=== PATIENT | female | born 1950 | race Caucasian/White ===

== ENCOUNTER → 2023-07-28 09:11 | Outpatient (REF) | payer MEDICARE, SELFPAY ==
[2023-07-28 10:42] LABS: % Basophils 0.4 % (0-2); % Eosinophils 6.7 % (0-6); % Immature Granulocytes 0.2 % (0-0.5); % Lymphocytes 42.6 % (20.5-51.1); % Monocytes 7.6 % (1.7-9.3); % Neutrophils 42.5 % (42.2-75.2); Absolute Eosinophils 0.4 10^3/uL (0-0.7); Absolute Lymphocytes 2.2 10^3/uL (1.2-3.4); Absolute Monocytes 0.4 10^3/uL (0.1-0.6); Absolute Neutrophils 2.2 10^3/uL (1.4-6.5); Hematocrit 42.3 % (37.0-47.0); Hemoglobin 13.2 g/dL (12.0-16.0); Mean Corp Hgb Conc. 31.2 g/dL (33.0-37.0); Mean Corpuscular Hgb 31.4 pg (27.0-31.0); Mean Corpuscular Volume 100.7 fL (81.0-99.0); Mean Platelet Volume 9.9 fL (7.4-10.4); Nucleated Red Blood Cells % 0 %; Platelet Count 130 10^3/uL (130-400); Red Cell Dist. Width 12.9 % (11.5-14.5); White Blood Cell Count 5.2 10^3/uL (4.8-10.8)
[2023-07-28 10:55] LABS: Urine Albumin Negative (Neg - Trace); Urine Bilirubin Negative (Negative); Urine Character Clear (Clear); Urine Color Yellow; Urine Glucose Negative (Negative); Urine Ketone Trace (Negative); Urine Leukocyte Negative (Negative); Urine Nitrite Negative (Negative); Urine Occult Blood Negative (Negative); Urine Urobilinogen Negative (Neg - 1+)
[2023-07-28 14:29] LABS: ALT (SGPT) 15 U/L (0-35); AST (SGOT) 17 U/L (14-36); Alkaline Phosphatase 63 U/L (38-126); Blood Urea Nitrogen 27 mg/dl (7-17); Calcium 10.3 mg/dl (8.4-10.2); Carbon Dioxide 26 mmol/L (22-30); Chloride 109 mmol/L (98-107); Glucose 95 mg/dl (70-99); HDL Cholesterol 77 mg/dl; LDL Cholesterol, Calculated 110 mg/dl; Phosphorus 3.4 mg/dl (2.5-4.5); Potassium 4.4 mmol/L (3.5-5.1); Sodium 139 mmol/L (135-145); Total Bilirubin 0.6 mg/dl (0.2-1.3); Total Cholesterol 218 mg/dl (50-199); Total Protein 6.6 g/dl (6.3-8.2); Triglyceride 155 mg/dl (10-149); Uric Acid 7.5 mg/dl (2.5-6.2); Very Low Density Lipoprotein 31 mg/dl (0-30); eGFR 59.12
[2023-07-28 14:41] LABS: Free T4 1.02 ng/dl (0.78-2.19)
[2023-07-28 14:55] LABS: TSH 3.05 uIU/ml (0.47-4.68)
[2023-07-28 15:23] LABS: Creatine Phosphokinase 68 U/L (30-135)
[2023-07-28 16:03] LABS: Vitamin D, 25-OH*** 36.2 ng/mL (30-80)
== END ==
LOC: REG 09:11
PROVIDERS: ATTENDING PHYSICIAN Family Medicine; OTHER PHYSICIAN Internal Medicine Cardiovascular Disease; OTHER PHYSICIAN Psychiatry & Neurology Psychiatry; REFERRING PHYSICIAN Internal Medicine Endocrinology, Diabetes & Metabolism
DX: Z00.00 Encounter for general adult medical examination without abnormal findings (principal); I10 Essential (primary) hypertension; E03.9 Hypothyroidism, unspecified; R73.03 Prediabetes; E55.9 Vitamin D deficiency, unspecified
CPT/HCPCS: 36415; 80053; 80061; 81003; 82306; 82550; 83036; 83735; 84100; 84439; 84443; 84550; 85025

== ENCOUNTER → 2024-01-19 11:31 | Outpatient (REF) | payer MEDICARE, SELFPAY ==
[2024-01-19 12:43] LABS: % Basophils 0.4 % (0-2); % Eosinophils 2.7 % (0-6); % Immature Granulocytes 0.4 % (0-0.5); % Lymphocytes 34.3 % (20.5-51.1); % Monocytes 9.6 % (1.7-9.3); % Neutrophils 52.6 % (42.2-75.2); Absolute Eosinophils 0.1 10^3/uL (0-0.7); Absolute Lymphocytes 1.6 10^3/uL (1.2-3.4); Absolute Monocytes 0.5 10^3/uL (0.1-0.6); Absolute Neutrophils 2.5 10^3/uL (1.4-6.5); Hematocrit 42.1 % (37.0-47.0); Hemoglobin 13.4 g/dL (12.0-16.0); Mean Corp Hgb Conc. 31.8 g/dL (33.0-37.0); Mean Corpuscular Hgb 32.1 pg (27.0-31.0); Mean Corpuscular Volume 100.7 fL (81.0-99.0); Mean Platelet Volume 9.7 fL (7.4-10.4); Nucleated Red Blood Cells % 0 %; Platelet Count 117 10^3/uL (130-400); Red Blood Cell Count 4.18 10^6/uL (4.20-5.40); Red Cell Dist. Width 13.1 % (11.5-14.5); White Blood Cell Count 4.8 10^3/uL (4.8-10.8)
[2024-01-19 13:56] LABS: Iron 90 ug/dl (37-170)
[2024-01-19 14:37] LABS: Ferritin 39.9 ng/ml (11.1-264.0)
[2024-01-21 12:07] LABS: Albumin 3.85 g/dL (3.75-5.01); Alpha 1 Globulin 0.25 g/dL (0.19-0.46); Alpha 2 Globulin 0.64 g/dL (0.48-1.05); SPEP IFE Reflex Not Done; Total Protein-Electrophoresis 6.2 g/dL (6.3-8.2)
== END ==
LOC: REG 11:31
PROVIDERS: ATTENDING PHYSICIAN Family Medicine
DX: I10 Essential (primary) hypertension (principal)
CPT/HCPCS: 82728; 83540; 84155; 84165; 85025

== ENCOUNTER → 2024-05-12 12:04 | Outpatient (REF) | payer MEDICARE, SELFPAY ==
[2024-05-12 13:34] LABS: ALT (SGPT) 22 U/L (0-35); AST (SGOT) 21 U/L (14-36); Albumin 3.9 g/dl (3.5-5.0); Alkaline Phosphatase 60 U/L (38-126); Blood Urea Nitrogen 36 mg/dl (7-17); Calcium 10.2 mg/dl (8.4-10.2); Carbon Dioxide 28 mmol/L (22-30); Chloride 106 mmol/L (98-107); Glucose 88 mg/dl (70-99); Potassium 5.2 mmol/L (3.5-5.1); Sodium 139 mmol/L (135-145); Total Bilirubin 0.5 mg/dl (0.2-1.3); Total Protein 6.4 g/dl (6.3-8.2); eGFR 42.88
[2024-05-12 13:51] LABS: Vitamin D, 25-OH*** 33.9 ng/mL (30-80)
== END ==
LOC: REG 12:04
PROVIDERS: ATTENDING PHYSICIAN Internal Medicine Endocrinology, Diabetes & Metabolism; FAMILY PHYSICIAN Family Medicine; REFERRING PHYSICIAN Internal Medicine Cardiovascular Disease
DX: E03.9 Hypothyroidism, unspecified (principal); E21.0 Primary hyperparathyroidism; E55.9 Vitamin D deficiency, unspecified
CPT/HCPCS: 36415; 80053; 82306; 83970; 84443

== ENCOUNTER → 2024-07-12 11:21 | Outpatient (REF) | payer MEDICARE, SELFPAY ==
[2024-07-12 12:10] LABS: % Basophils 0.3 % (0-2); % Eosinophils 4.2 % (0-6); % Immature Granulocytes 0.3 % (0-0.5); % Lymphocytes 32.8 % (20.5-51.1); % Monocytes 7.5 % (1.7-9.3); % Neutrophils 54.9 % (42.2-75.2); Absolute Eosinophils 0.3 10^3/uL (0-0.7); Absolute Monocytes 0.5 10^3/uL (0.1-0.6); Absolute Neutrophils 3.3 10^3/uL (1.4-6.5); Hematocrit 40.1 % (37.0-47.0); Hemoglobin 12.7 g/dL (12.0-16.0); Mean Corp Hgb Conc. 31.7 g/dL (33.0-37.0); Mean Corpuscular Hgb 31.3 pg (27.0-31.0); Mean Corpuscular Volume 98.8 fL (81.0-99.0); Mean Platelet Volume 9.7 fL (7.4-10.4); Nucleated Red Blood Cells % 0 %; Platelet Count 150 10^3/uL (130-400); Red Blood Cell Count 4.06 10^6/uL (4.20-5.40); Red Cell Dist. Width 12.9 % (11.5-14.5); Urine Albumin Negative (Neg - Trace); Urine Bilirubin Negative (Negative); Urine Character Clear (Clear); Urine Color Yellow; Urine Glucose Negative (Negative); Urine Ketone Negative (Negative); Urine Leukocyte 2+ (Negative); Urine Nitrite Negative (Negative); Urine Occult Blood Negative (Negative); Urine Specific Gravity 1.015 (<1.030); Urine Urobilinogen Negative (Neg - 1+)
[2024-07-12 12:18] LABS: Urine Squamous Cell >30 /LPF (Few)
[2024-07-12 12:21] LABS: Urine Bacteria Moderate (Negative); Urine White Cell 21-25 /HPF (0-5)
[2024-07-12 12:23] LABS: Urine Red Blood Cell 0-2 /HPF (0-2)
[2024-07-12 13:26] LABS: Depakane 48.7 ug/ml (50.0-120.0)
[2024-07-12 14:05] LABS: Free T4 1.05 ng/dl (0.78-2.19)
[2024-07-12 14:19] LABS: ALT (SGPT) 16 U/L (0-35); AST (SGOT) 15 U/L (14-36); Alkaline Phosphatase 70 U/L (38-126); Blood Urea Nitrogen 28 mg/dl (7-17); Calcium 10.2 mg/dl (8.4-10.2); Carbon Dioxide 25 mmol/L (22-30); Chloride 109 mmol/L (98-107); Glucose 84 mg/dl (70-99); HDL Cholesterol 72 mg/dl; LDL Cholesterol, Calculated 103 mg/dl; Lithium 1.2 mmol/L (0.6-1.2); Phosphorus 3.3 mg/dl (2.5-4.5); Potassium 4.4 mmol/L (3.5-5.1); Sodium 143 mmol/L (135-145); TSH 0.08 uIU/ml (0.47-4.68); Total Bilirubin 0.6 mg/dl (0.2-1.3); Total Cholesterol 200 mg/dl (50-199); Total Protein 6.3 g/dl (6.3-8.2); Triglyceride 127 mg/dl (10-149); Uric Acid 7.3 mg/dl (2.5-6.2); Very Low Density Lipoprotein 25 mg/dl (0-30); eGFR 58.75
== END ==
LOC: REG 11:21
PROVIDERS: ATTENDING PHYSICIAN Family Medicine; OTHER PHYSICIAN Internal Medicine Cardiovascular Disease; OTHER PHYSICIAN Internal Medicine Endocrinology, Diabetes & Metabolism
DX: E03.9 Hypothyroidism, unspecified (principal); I10 Essential (primary) hypertension; E78.9 Disorder of lipoprotein metabolism, unspecified; Z00.00 Encounter for general adult medical examination without abnormal findings
CPT/HCPCS: 36415; 80053; 80061; 80164; 80178; 81003; 81015; 83735; 84100; 84439; 84443; 84550; 85025

== ENCOUNTER → 2024-11-09 11:20 | Outpatient (REF) | payer MEDICARE, SELFPAY ==
[2024-11-09 14:44] LABS: Iron 108 ug/dl (37-170)
[2024-11-09 14:53] LABS: Total Iron Binding Capacity 310 ug/dl (265-497)
[2024-11-09 15:28] LABS: Ferritin 46.2 ng/ml (11.1-264.0)
[2024-11-09 15:59] LABS: Folate 10.1 ng/ml (2.76-20); Vitamin B12 228 pg/ml (239-931)
[2024-11-09 16:21] LABS: CRP, Ultra Sensitive 1.02 mg/L (0.30-5.00)
[2024-11-10 11:13] LABS: tTG IgA Antibody 5.5 EU/ml (0-19)
[2024-11-11 14:16] LABS: Lyme Antibody Screen, EIA Negative (Negative)
[2024-11-12 06:52] LABS: Copper, Serum 92.6 ug/dL (80.0-155.0)
[2024-11-12 09:03] LABS: Gliadin Peptide (DGP) Ab, IgA <0.72 FLU (0.00-4.99); Gliadin Peptide (DGP) Ab, IgG 2.09 FLU (0.00-4.99)
== END ==
LOC: REG 11:20
PROVIDERS: ATTENDING PHYSICIAN Psychiatry & Neurology Neurology; FAMILY PHYSICIAN Family Medicine; OTHER PHYSICIAN Internal Medicine Cardiovascular Disease; OTHER PHYSICIAN Internal Medicine Endocrinology, Diabetes & Metabolism; OTHER PHYSICIAN Psychiatry & Neurology Psychiatry
DX: R26.9 Unspecified abnormalities of gait and mobility (principal); G25.9 Extrapyramidal and movement disorder, unspecified; F31.9 Bipolar disorder, unspecified; E79.0 Hyperuricemia without signs of inflammatory arthritis and tophaceous disease; E53.8 Deficiency of other specified B group vitamins; R71.8 Other abnormality of red blood cells; E03.8 Other specified hypothyroidism; Z79.899 Other long term (current) drug therapy; D51.9 Vitamin B12 deficiency anemia, unspecified
CPT/HCPCS: 36415; 82085; 82164; 82525; 82550; 82607; 82728; 82746; 82784; 83516; 83540; 83550; 84207; 84425; 84439; 84443; 84446; 85652; 86141; 86235; 86258; 86618; 86780

== ENCOUNTER → 2025-01-18 12:34 | Outpatient (REF) | payer MEDICARE, SELFPAY | LOC: MRI 3T 12:34 | PROVIDERS: ATTENDING PHYSICIAN Psychiatry & Neurology Neurology; FAMILY PHYSICIAN Family Medicine | DX: R27.0 Ataxia, unspecified (principal); G25.9 Extrapyramidal and movement disorder, unspecified; F31.9 Bipolar disorder, unspecified; R26.9 Unspecified abnormalities of gait and mobility | CPT/HCPCS: 70551; 72141 ==

== ENCOUNTER 2025-03-27 18:21 | Inpatient (IN) | payer MEDICARE, SELFPAY ==
[2025-03-27] VITALS (9 sets, daily range): BP systolic 113–158; BP diastolic 70–98; BMI 31.2
[2025-03-27 12:06] LABS: Hematocrit 36.1 % (37.0-47.0); Hemoglobin 11.8 g/dL (12.0-16.0); Mean Corp Hgb Conc. 32.7 g/dL (33.0-37.0); Mean Corpuscular Volume 96.8 fL (81.0-99.0); Platelet Count 119 10^3/uL (130-400); Red Cell Dist. Width 12.8 % (11.5-14.5)
[2025-03-27 12:19] LABS: COVID-19 Antigen Negative (Negative)
[2025-03-27 12:20] LABS: ALT (SGPT) 56 U/L (0-35); AST (SGOT) 54 U/L (14-36); Albumin 3.7 g/dl (3.5-5.0); Alkaline Phosphatase 115 U/L (38-126); Blood Urea Nitrogen 30 mg/dl (7-17); Calcium 10.2 mg/dl (8.4-10.2); Carbon Dioxide 19 mmol/L (22-30); Chloride 105 mmol/L (98-107); Glucose 112 mg/dl (70-99); Potassium 4.1 mmol/L (3.5-5.1); Sodium 135 mmol/L (135-145); Total Protein 6.4 g/dl (6.3-8.2); eGFR 30.89
--- NOTE | 2025-03-27 15:09 | ED.GENMED ---
History of Present Illness
General
Chief Complaint: Weakness
Time Seen by Provider: 03/27/25 15:08
History of Present Illness
History of Present Illness:
FOCUSED PAST MEDICAL HISTORY
- High blood pressure, hypothyroidism, history of bipolar disorder
REVIEW OF OLD RECORDS
- Creatinine 07/12/2024 was 1.0
Note:
CHIEF COMPLAINT(S)
Decreased mobility, speech, and appetite.
HISTORY OF PRESENT ILLNESS
The patient is a 75-year-old female with a past psychiatric history of bipolar disorder for the past 35 years and hypothyroidism. She presented with a progressive decline starting yesterday, including decreased mobility, speech, and appetite. She
has been craving soda and not hydrating well otherwise. The family suspects catatonia, as she has had similar episodes in the past.
PAST MEDICAL AND SURGICAL HISTORY
- Bipolar disorder for over 35 years.
- Hypothyroidism.
CHRONIC MEDICAL CONDITIONS SIGNIFICANTLY AFFECTING CARE
- Bipolar disorder.
- Hypothyroidism.
SOCIAL DETERMINANTS AFFECTING HEALTH
The patients craving for soda and inadequate hydration are of medical concern, contributing to poor kidney function.
MEDICATIONS
- Depakote
- Savannah
- Clonazepam (used as needed for manic episodes; last dose taken was 0.5 mg at 10:00 AM today).
REVIEW OF SYSTEMS
- General: Decreased appetite and mobility.
- Neurological: Impaired speech and weakness in extremities.
- Psychiatric: Depression with flat affect, suspected catatonia.
PHYSICAL EXAM
General: Alert, appears weak and debilitated.
Skin: Warm, dry.
Head: Normocephalic, atraumatic.
Neck: Supple, trachea midline.
Eye, Ears, Nose, Mouth, and Throat: Oral mucosa moist.
Cardiovascular: Normal peripheral perfusion, no edema.
Respiratory: Respirations are non-labored.
Gastrointestinal: Abdomen nondistended.
Back: Normal range of motion, Normal alignment.
Musculoskeletal: Moves all extremities weakly.
Neurological: Appears generally weak, moves extremities weakly. Alert but with a flat depressed affect.
Psychiatric: Flat, depressed affect, recognized surroundings and context during questioning.
PLAN
- Assess hydration status and kidney function; consider hospital admission for IV fluids.
- Review lithium and Depakote levels.
- Ordered thyroid function tests due to history of hypothyroidism.
- Discuss the use of lorazepam for catatonia.
DIFFERENTIAL DIAGNOSIS
The Differential Diagnosis includes, in no particular order and is not limited to:
1. Catatonia secondary to bipolar disorder.
2. Electrolyte imbalance.
3. Hypothyroidism exacerbation.
4. Dehydration.
5. Acute kidney injury.
6. Neurological impairment.
7. Adverse drug reaction or polypharmacy.
8. Depression-associated immobility.
9. Nutritional deficiency.
10. Delirium or acute confusional state.
LABS
- White count 9.1, hemoglobin 11.8, creatinine 1.7, bicarb 19 creatinine 07/12/2024 was 1.0
SUMMARY OF ENCOUNTER
The patient, a 75-year-old female with a history of bipolar disorder and hypothyroidism, presented with decreased mobility, speech, and appetite, suggesting potential catatonia. Her kidney function tests showed elevated creatinine levels at 1.7
compared to her baseline of 1.0, indicating possible dehydration. Bicarbonate levels were also low, consistent with dehydration. Savannah and valproic acid levels were within therapeutic range, and ammonia levels were normal, ruling out hepatic
contribution to altered mental status. Benzodiazepines were trialed, and although lithium levels were safe, the patients frailty and diminished oral intake warranted hospital admission for observation and medical management.
DISPOSITION
Admission to the hospital for observation and further care.
ASSESSMENT
The assessment concludes dehydration leading to an increase in creatinine, along with possible catatonia secondary to bipolar disorder, further necessitating hospital observation.
MANAGEMENT OF THE PATIENTS CARE WAS DISCUSSED WITH
The hospitalist was made aware, facilitating continuity of care for admission. A psychiatrist was also contacted for evaluation the following day.
PLAN
Admit the patient for overnight observation and further treatment, including IV fluids to address dehydration. Ensure psychiatric evaluation and continuation of current medications with therapeutic monitoring. Reassess her condition and recovery
suitability for discharge.
INDEPENDENT REVIEW OF LABS AND INTERPRETATION OF TESTS
My independent review of the BMP indicates an elevated creatinine level of 1.7, suggesting dehydration. The bicarbonate level was also low. [place]annah and valproic acid levels were therapeutic, and ammonia levels were normal.
MEDICATION RECONCILIATION
Benzodiazepines (possibly lorazepam) were administered for trial.
MEDICAL DECISION MAKING
-Complexity of Data Reviewed: Chronic conditions affecting care include a history of bipolar disorder and hypothyroidism. Differential diagnosis includes:
1. Catatonia secondary to bipolar disorder.
2. Electrolyte imbalance.
3. Hypothyroidism exacerbation.
4. Dehydration.
5. Acute kidney injury.
6. Neurological impairment.
7. Adverse drug reaction or polypharmacy.
8. Depression-associated immobility.
9. Nutritional deficiency.
10. Delirium or acute confusional state.
-Data:
Category 1
-Reviewed BMP, psychiatric medication levels, and ammonia levels.
Category 3
-Discussion of management with the hospitalist and psychiatrist to optimize care.
-Risk:
Admission is warranted due to dehydration and potential for psychiatric decompensation. Social determinants of health like inadequate hydration due to craving soda also influence care.
DIAGNOSIS
Dehydration-related acute kidney injury (ICD-10: E86.0).
Catatonia secondary to bipolar disorder (ICD-10: F06.1).
Bipolar disorder, current episode depressed (ICD-10: F31.4).
UPDATE
- Patient has JOEY with creatinine of 1.7 and was normal back in June
- I do not feel that she can be cleared medically to be placed at a psychiatric facility
- However I think psychiatric illnesses one of the major underlying etiologies of her presentation
- Added benzo for catatonia
- Notified on-call psychiatry and hospitalist
- Savannah, Depakote levels as well as ammonia levels are not elevated
Past History
Past History
ED Past Medical History: HTN and Psychiatric (Bipolar. Takes Seroquel, Depakote, lithium, Klonopin when necessary)
ED Past Surgical History: Orthopedic
Patient has exhibited threatening behavior?: No
PSI?: No
Social History
Tobacco: Non-smoker
Alcohol: None
Drug: None
Personal:
Living: with family
Phy Exam
Physical Exam
Physical Exam:
See HPI
Course
Orders/Labs/Results
Orders:
Orders
03/27/25 11:47
CMP [Comprehensive Metabolic Panel] Urgent
COVID-19 Antigen Urgent
Source: Nasal Swab
Complete Blood Count/No Diff Urgent
Free T4 Urgent
TSH Reflex To Free T4 Urgent
Comment: ADD ON
Influenza A+B Rapid Molecular Urgent
OZZY Source: Nasal Swab
Specimen Description:
03/27/25 15:09
Add On- LAB Urgent
Tests Added?: tsh reflex fT4
0.9% Sodium Chloride 1000 ml [Nss] 1,000 ml IV BOLUS
03/27/25 15:18
Lorazepam [Ativan] 1 mg IV NOW STA
03/27/25 16:22
Ammonia Urgent
Savannah Urgent
Valproic Acid Level [Depakane] Urgent
Abnormal Lab Results
03/27/25 03/27/25
11:47 16:22
RBC 3.73 L 10^6/uL
(4.20-5.40)
Hgb 11.8 L g/dL
(12.0-16.0)
Hct 36.1 L %
(37.0-47.0)
MCH 31.6 H pg
(27.0-31.0)
MCHC 32.7 L g/dL
(33.0-37.0)
Plt Count 119 L 10^3/uL
(130-400)
Carbon Dioxide 19 L mmol/L
(22-30)
BUN 30 H mg/dl
(7-17)
Creatinine 1.7 H mg/dL
(0.6-1.0)
Glucose 112 H mg/dl
(70-99)
AST 54 H U/L
(14-36)
ALT 56 H U/L
(0-35)
Ammonia < 9 L umol/L
(9-30)
TSH (Reflex) 0.03 L uIU/ml
(0.47-4.68)
03/27/25 11:47
03/27/25 11:47
Vital Signs
Initial and Last Documented VS:
Initial Vital Signs
Temp Pulse Resp BP Pulse Ox
37.2 C 88 16 129/70 91
03/27/25 11:38 03/27/25 11:38 03/27/25 11:38 03/27/25 11:38 03/27/25 11:38
Last Documented Vital Signs
Temp Pulse Resp BP Pulse Ox
37.4 C 84 28 113/72 93
03/27/25 16:09 03/27/25 16:15 03/27/25 16:15 03/27/25 16:10 03/27/25 16:09
*Pulse Oximetry
SaO2: 91
Oxygen Mode of Delivery: Room air
Patient hypoxic: no
*Critical Care Note
Total Time (30-74mins, 75-104mins- exclusive of procedures): Not Applicable
ED Attending Note
-
Portions of this chart may have been created with voice recognition software.� Occasional wrong word or��sound alike� substitutions may have occurred due to the inherent limitations of voice recognition software.
Discharge Plan
Departure
Prescriptions:
No Action
clonazepam 0.5 MG tablet
0.5 mg PO DAILY
divalproex 500 MG tablet,delayed release (DR/EC)
1,000 mg PO DAILY
quetiapine [Seroquel] 100 MG tablet
150 mg PO DAILY
levothyroxine 50 MCG tablet
40 mcg PO DAILY
metoprolol tartrate 25 MG tablet
25 mg PO BID Qty: 60 0RF
hydrochlorothiazide 12.5 mg capsule
12.5 mg PO DAILY Qty: 30 0RF
Referrals:
Daljit Carlos DO [Family Provider, Family Practice]
Interventions
Interventions:
*General Assessment Last Done: 03/27/25 11:38
*Neglect/Abuse Screening Last Done: 03/27/25 11:38
*ED COVID-19 Vaccine History Last Done: 03/27/25 16:14
*ED Influenza Vaccine History Last Done: 03/27/25 16:14
[facility] Fall Risk Assessment Tool Last Done: 03/27/25 16:13
*Risk Screen - Suicide (C-SSRS) Last Done: 03/27/25 11:38
ED- Cardiac Assessment Last Done: 03/27/25 16:30
ED- Neurological Assessment Last Done: 03/27/25 16:30
ED- Pulmonary Assessment Last Done: 03/27/25 16:30
Discharge Date and Time
Print Language: MALTESE
[2025-03-27] MEDS: NSS 1000 IV ×2 (16:28→19:33)
[2025-03-27] MEDS: ATIVAN 1 MG IV (16:29)
[2025-03-27 16:45] LABS: Ammonia < 9 umol/L (9-30)
[2025-03-27 16:51] LABS: Lithium 1.0 mmol/L (0.6-1.2)
[2025-03-27 16:58] LABS: Depakane 51.0 ug/ml (50.0-120.0)
--- NOTE | 2025-03-27 17:37 | HPS.HSE ---
Family Physician
-
Family Physician: Daljit Carlos
Chief Complaint
-
Decreased oral intake, not being herself
History of Present Illness
Patient is a 75-year-old female with history of bipolar disorder on lithium with other therapy, essential hypertension, generalized anxiety, hypothyroidism, history of catatonia in the past was brought in by family after patient was noted to having
decreased oral intake for last 48 hours and not being herself. Patient minimally communicating in ER and not voicing any problems. Patient family at bedside and providing information. According to family patient have dealt with depression/bipolar
disorder for 35 years of life has been following with psychiatry in outpatient basis in [place]. No recent change in medication. For last 48 hours patient has not eating anything, not interested in talking and family felt repeat episode of
catatonia as has happened in the past. No reported nausea vomiting diarrhea. No cardiopulmonary complaints.
Medical History
Past Medical History
Past Medical History: Reports Other
Additional Past Medical History:
bipolar disorder on lithium with other therapy, essential hypertension, generalized anxiety, hypothyroidism, history of catatonia
Past Surgical History: Reports Other
Social History
Tobacco: Non-smoker
Alcohol: None
Living: With Family
Family History
Family History: Not pertinent
Allergies / Home Medications
Allergies reflects when Allergies were last updated in [employer].
Home Medications with original date entered in [employer]
Allergy/Medication List:
Allergies
Allergy/AdvReac Type Severity Reaction Status Date / Time
No Known Allergies Allergy Verified 03/27/25 16:13
Home Medications
clonazepam 0.5 mg tablet 0.5 mg PO DAILY 02/24/17
divalproex 500 mg tablet,delayed release 1,000 mg PO DAILY 02/24/17
levothyroxine 50 mcg tablet 40 mcg PO DAILY 02/24/17
quetiapine 100 mg tablet (Seroquel) 150 mg PO DAILY 02/24/17
metoprolol tartrate 25 mg tablet 25 mg PO BID #60 tabs 02/25/19
hydrochlorothiazide 12.5 mg capsule 12.5 mg PO DAILY #30 caps 05/21/22
Review of Systems
-
Unable to obtain full review of systems at this time due to: Acuity (Limited review of system negative for any acute complaint)
Physical Exam
Vital Signs
Vital Signs
Temp Pulse Resp BP Pulse Ox
99.3 F 84 28 113/72 93
03/27/25 16:09 03/27/25 16:15 03/27/25 16:15 03/27/25 16:10 03/27/25 16:09
Physical Exam
General: No Apparent Distress and Obese
HEENT: Atraumatic; No Oxygen
Respiratory: Clear
Cardiac: S1/S2 and Regular Rhythm; No Murmur or Rub
GI: Soft, Non Tender and Non Distended; No Organomegaly
Musculoskeletal: No Edema
Skin: No Rash
Neuro: Awake and Alert
Psych: Calm and Depressed
Laboratory Results
-
03/27/25 11:47
03/27/25 11:47
Laboratory Results
Total Bilirubin 1.3 mg/dl (0.2-1.3) 03/27/25 11:47
AST 54 U/L (14-36) H 03/27/25 11:47
ALT 56 U/L (0-35) H 03/27/25 11:47
Alkaline Phosphatase 115 U/L (38-126) 03/27/25 11:47
Impression/Plan
-
1. Altered mental state -rule out toxic encephalopathy versus psychiatric issues. Patient patient have extensive psych history and was brought in for patient being minimally communicative and not eating or drinking anything for 48 hours. Family
concerned about repeat episode of catatonia as has happened although patient responding and talking few words on exam. Less likely significant catatonia episode although will defer further evaluation for this to psychiatry. Patient got IV Ativan 1
mg in the ER will continue every 4 hour as needed as needed for the night.
UA check ordered. COVID-negative. No other clinical signs suggestive of ongoing infection. Patient not voicing any urological complaints. [place] level of 1 and valproic acid of 51. NH3 < 9 Patient may have decreased renal clearance of some of
the psychiatric medication which includes venlafaxine/lithium/Seroquel/divalproex/Rexulti. Will continue home regimen for now
2. Acute kidney injury -baseline creatinine of 1, elevated to 1.7. Suspecting low oral intake. Family reported of Botox injections/for bladder urgency. Bladder scan check ordered. UA check pending. Maintain on IV fluid through the night
3. Metabolic acidosis -a gap of 11 and likely driven by JOEY. Monitor post IV hydration.
4. Essential hypertension -med list not updated at the time of admission although pill bottles reviewed and patient is not currently on metoprolol/hydrochlorothiazide. Monitor off of it.
5. Hypothyroid -patient not on levothyroxine? TSH of 0.03 and free T4 of 1.8.
6. Bipolar disorder/major depression -psychiatry has been consulted by the ER physician. Currently maintaining on home regimen as reported by family and med review.
7. Transaminitis - ALT and AST both in 50s, monitor. Further testing if worsenes.
Full code
DVT PPX - lovenox
Total time spent : 78 mins
I personally saw and examined the patient.
I have reviewed all diagnostic interpretations and treatment plans as written.
Time includes patient management by me, time spent at the patients bedside, time to review lab and imaging results, discussing patient care, documentation in the medical record, and time spent with the family or caregiver and discussing care plan
with RN/Consultants.
[2025-03-27] MEDS: LOVENOX SC (19:31)
--- NOTE | 2025-03-27 20:38 | EDRN ---
this AIRCRAFT SALES REPRESENTATIVE spoke with the pts and daughter. the pts and the pts daughter both stated they are okay with going home tonight once the pt gets assigned an inpatient room upstairs. the pts stated he will be back in the morning to
visit with this pt. the pts family stated they will stay in the ER with the patient until she gets assigned a room upstairs. the ER zinc furnace charger was notified of above
--- NOTE | 2025-03-27 20:46 | EDRN ---
Addendum entered by Clarisa Workman RN 03/27/25 21:27:
the pt has NOT BEEN ABLE TO AMBULATE at home today per daughter, too weak.
Original Note:
this CHEMICAL HANDLER answered this pts call bergman. the pts daughter stated the pt is repeatedly stated she has to pee and is trying to get OOB to urinate in the bathroom. the pt has not too weak to ambulate at home today per her daughter. the pts purewick is
in place and operational but the pt is not voiding. this CHEMICAL HANDLER bladder scanned this pt, result-450 ml. this CHEMICAL HANDLER performed straight cath on this pt, output-600mL. After emptying this pts bladder via straight cath, the pt appears much more calm,
cooperative, and is laying in the ER stretcher comfortably.
the pt is waiting to be assigned an inpatient med/surg room.
[2025-03-27 20:49] LABS: Urine Character Slightly Cloudy (Clear)
[2025-03-27 21:50] LABS: Urine Squamous Cell 0-2 /LPF (Few)
[2025-03-27 21:51] LABS: Urine White Cell 60-70 /HPF (0-5)
[2025-03-27] MEDS: DEPAKOTE (12 HR RELEASE) 500 MG PO (23:02)
[2025-03-27] MEDS: ESKALITH REGULAR RELEASE 300 MG PO (23:02)
[2025-03-27] MEDS: EFFEXOR XR 150 MG PO (23:02)
[2025-03-27] MEDS: SEROQUEL 200 MG PO (23:05)
[2025-03-27] MEDS: NON-FORMULARY ITEM 1.5 MG PO (23:49)
--- NOTE | 2025-03-28 00:06 | PTCARENOTE ---
Pt admitted to 404-1 from ED. Pulled over to bed x 3. Pt able to answer some yes / no questions. Daughter and spouse at bedside helping with admission questions. Pt restless, incont of lg BM. Took medications with help from family. temp 100.9, re
check 98.0 without intervention. Bed alarm on. Call bergman within reach.
[2025-03-28] MEDS: NSS 1000 IV ×3 (05:01→20:49)
[2025-03-28 07:53] VITALS: BP 133/78
--- NOTE | 2025-03-28 08:23 | W.PN.HOSP.TC ---
Addendum entered and electronically signed by Sangeeta Aguero MD 03/28/25 15:39:
I saw and evaluated the patient independently. I reviewed and discussed the resident�s note and agree with findings and plan as documented by Dr. Alvarenga.
GENERAL: well developed, well nourished, female in no apparent distress sitting in the chair
HEENT: NC/AT
HEART: regular rate and rhythm, +S1, +S2
LUNGS : clear to auscultation bilaterally
ABDOM: soft, nontender, nondistended, + bowel sounds
EXT: no cyanosis, clubbing, or edema
NEUROLOGIC: grossly intact
Altered mental status--initially thought to be due to psych issues but more likely due to metabolic encephalopathy from UTI--UA positive--starting rocephin--await urine culture
Acute kidney injury--Baseline of 1.0--Cr 1.7 on presentation, improved to 1.3--resume Lisinopril
Chronic urinary retention--likely cause of infection--retention likely due to botox +/- psych meds--start flomax--cont st cath protocol
Bipolar disorder/major depression--Donnellson and valproate within therapeutic limits--await psych input
Non-anion gap metabolic acidosis -AG of 9, HCO3 still low (Cl elevated)--NS may be contributing--stop and follow
Essential hypertension -resume lisinopril
Hypothyroid--TSH of 0.03 and free T4 of 1.8--Patient is on levothyroxine 125 mcg p.o.--continue
Transaminitis -ALT and AST improving, but Alkp now 150 --check abdominal US
Ambulatory dysfunction--PT/OT with walker
Codes status- full
DVT Proph
Original Note:
Today's Communication/Plan
-
Commence ABX, PT/OT/ Flomax and ABD- US
Assessment / Plan
Assessment / Plan
Ms Perez is a 75 year old female with PMH of bipolar disorder on lithium with other therapy, with prior history of catatonia, essential hypertension, generalized anxiety, hypothyroidism, who presented to the [facility] ED yesterday on account of AMS;
Minimally communicative and, refusal to eat and drink.
1) Altered mental status
Likely secondary to Urinary tract infection
Possible Bipolar affective disorder contributing, has gotten IV.
2) Urinary tract infection
Patient with urinary retention and pos urinary WBC, Nitrite, Blood
Commence Abx; Rocephine pending culture result.
3) Acute kidney injury
Baseline of 1.0
Cr 1.7 on presentation, improved to 1.3
Can resume Lisinopril
4) Chronic urinary retention
H/O Of urinary retention on Botux therapy
Currently on Straight cat protocol and yielded 600mls X 2
Start Flomax 0.4 mg now and continue HS
5)Bipolar disorder/major depression
Donnellson and valproate within therapeutic limits
Psychiatry has been consulted by the ER physician.
Currently maintaining on home regimen as reported by family and med review
6) Non-anion gap metabolic acidosis
-AG of 9, HCO3 still low (Cl elevated)
NS may be contributing
Continue to monitor
7). Essential hypertension -
Blood pressure on the High side
To resume home Lisinopril 10mg
8) Hypothyroid
TSH of 0.03 and free T4 of 1.8.
Patient is on levothyroxine 125 mcg p.o.
Resume medications
9) Transaminitis -
ALT and AST improving, but Alkp now 150
Do ABd uss to check biliary tree.
10) Ambulatory disfunction
Ambulates with walker
PT/OT
Codes status- full
DVT PPX-
Dispo- Pending
Anticipated Discharge: Within 24 hours
Subjective/Interval History
-
Date of Service: March 28, 2025
Met patient in bed, at the bedside.
Objective Data
-
Labs:
Laboratory Results
03/28/25
07:54
WBC Pending
Hgb Pending
Hct Pending
Plt Count Pending
Sodium Pending
Potassium Pending
Chloride Pending
Carbon Dioxide Pending
BUN Pending
Creatinine Pending
Glucose Pending
Calcium Pending
Total Bilirubin Pending
AST Pending
ALT Pending
Alkaline Phosphatase Pending
Vital Signs:
Vital Signs
Temp Pulse Resp BP Pulse Ox
98.0 F 106 20 158/98 97
03/27/25 23:54 03/27/25 22:45 03/27/25 22:45 03/27/25 22:45 03/27/25 22:45
I&O
03/27/25 03/28/25 03/29/25
06:59 06:59 06:59
Intake Total 875 / 875
Output Total 1200 / 1200
Balance -325 / -325
Review of Systems
-
Unable to obtain full review of systems at this time due to: Acuity
History Source: Patient and Family ( at the bedside)
Physical Exam
-
General: Well Developed and Well Nourished
HEENT: Normocephalic and Atraumatic
Respiratory: Clear to Auscultation and Wheezes
Cardiac: Regular Rhythm and S1/S2
GI: Soft, Nontender and Nondistended
Musculoskeletal: No Edema
Skin: Warm and Dry
Neuro: Awake and Other (Not fully oriented)
Psych: Calm
Data Reviewed
-
Labs: Labs Reviewed by me, Discussed with Physician, Discussed with Patient and Discussed with Family
[2025-03-28 08:55] LABS: Hematocrit 36.8 % (37.0-47.0); Hemoglobin 11.6 g/dL (12.0-16.0); Mean Corp Hgb Conc. 31.5 g/dL (33.0-37.0); Mean Corpuscular Volume 98.9 fL (81.0-99.0); Platelet Count 102 10^3/uL (130-400); Red Cell Dist. Width 12.7 % (11.5-14.5)
[2025-03-28 09:23] LABS: ALT (SGPT) 55 U/L (0-35); AST (SGOT) 42 U/L (14-36); Albumin 3.4 g/dl (3.5-5.0); Alkaline Phosphatase 150 U/L (38-126); Blood Urea Nitrogen 26 mg/dl (7-17); Calcium 9.9 mg/dl (8.4-10.2); Carbon Dioxide 20 mmol/L (22-30); Chloride 109 mmol/L (98-107); Estimated Creatinine Clearance 40 ml/min; Glucose 72 mg/dl (70-99); Potassium 4.2 mmol/L (3.5-5.1); Sodium 138 mmol/L (135-145); Total Protein 6.0 g/dl (6.3-8.2); eGFR 42.62
[2025-03-28] MEDS: STERILE WATER FOR INJECTION 10 ML IV (12:07)
[2025-03-28] MEDS: ROCEPHIN 1000 MG IV (12:07)
[2025-03-28] MEDS: FLOMAX 0.4 MG PO ×2 (12:07→21:09)
[2025-03-28 13:12] VITALS: BP 141/81
[2025-03-28 15:59] VITALS: BP 118/71
--- NOTE | 2025-03-28 16:06 | VNURNOTE ---
Home Health Liaison spoke with patient's spouse to discuss [facility] nurse/therapy, visits, schedule and homebound status. He is agreeable and understands that visits at home will be 2-3 x per week to assess and teach medical management. Spouse is
aware that [facility] will contact them for start of care within a week after discharge from .
[facility] referral completed in [facility].
--- NOTE | 2025-03-28 16:50 | CM ---
Alert awake oriented patient who lives with her Tenzin in a 2 story home with 4 steps to enter and stair glide to bed/bathroom. She is assisted in activates of daily living.She does not drive .She uses a walker wheelchair .Spoke with rell
Mary Kate [phone] in room..
Had [facility] in past . No SNF hx
Pharmacy [facility]
PCP Dr Carlos
PLAN Home with [facility]
[2025-03-28] MEDS: ZESTRIL 10 MG PO (16:52)
[2025-03-28] MEDS: LOVENOX 40 MG SC (16:53)
--- NOTE | 2025-03-28 16:54 | CS.PSYCHR ---
Consult Summary - Psychiatry
-
pt seen this am in consultation for concern about catatonia
75 yo woman brought to ED by family due to decline over past few days leading to poor oral intake, not walking, appearing to have another episode of catatonia as she has had several times over the course of her life with bipolar disorder. Currently
taking rexulti, lithium, depakote, klonopin, and quetiapine, Under the care of Dr.Steven Hampton in [facility], has cared for her for past 10 years, generally doing well. Slight med adjustments at last visit.
Since admission pt has had IV fluid replacement, received a dose of IV ativan, and is being treated for a UTI
Generally healthy, has had botox to bladder for urgency, noted to have high residual this am
On exam pt is awake and alert, does respond to questions but very minimally, one word if that. Smiles. Woodugher states that she had been doing echolalia
yesterday but not seen today. Knows she is in hospital, knows why, knows age
Call placed to Dr Hampton x 2, no response.
Discussed with daughter at bedside--she is a mental health counselor with good grasp of mother's illness. Pros and cons of use of ativan in setting where it is unclear how much of what we are seeing is from delirium from UIT, and how much is
catatonia. Since she is improving, and ativan can make delirium worse, will plan on holding off on med changes until I hear from Dr Hampton (just called him again.)
--- NOTE | 2025-03-28 19:17 | PTCARENOTE ---
This RN noticed bruising around pt wrists this AM. Observed pt pulling pt to standing position by wrists. When family left room, pt verbalizes feeling safe with family and in hospital. Pt reports no pain.
[2025-03-28] MEDS: EFFEXOR XR 150 MG PO (21:09)
[2025-03-28] MEDS: DEPAKOTE (12 HR RELEASE) 500 MG PO (21:09)
[2025-03-28] MEDS: ESKALITH REGULAR RELEASE 300 MG PO (21:09)
[2025-03-28] MEDS: SEROQUEL 200 MG PO (21:09)
[2025-03-28] MEDS: NON-FORMULARY ITEM 1.5 MG PO (21:10)
[2025-03-28 23:33] VITALS: BP 126/69
[2025-03-29] MEDS: SYNTHROID 125 MCG PO (05:54)
[2025-03-29] MEDS: NSS 1000 IV (06:11)
[2025-03-29 07:59] VITALS: BP 139/68
--- NOTE | 2025-03-29 08:01 | W.PN.HOSP.TC ---
Addendum entered and electronically signed by Sangeeta Aguero MD 03/29/25 11:54:
I saw and evaluated the patient independently. I reviewed and discussed the resident�s note and agree with findings and plan as documented by Dr. Alvarenga.
GENERAL: well developed, well nourished, female in no apparent distress
HEENT: NC/AT
HEART: regular rate and rhythm, +S1, +S2
LUNGS : clear to auscultation bilaterally
ABDOM: soft, nontender, nondistended, + bowel sounds
EXT: no cyanosis, clubbing, or edema
NEUROLOGIC: grossly intact
Altered mental status--initially thought to be due to psych issues but more likely due to metabolic encephalopathy from UTI--UA positive, urine culture with E. coli--starting rocephin and change to oral keflex at d/c--await urine culture
sensitivities
Acute kidney injury--Baseline of 1.0--Cr 1.7 on presentation, improved to 1.3--resume Lisinopril
Chronic urinary retention--likely cause of infection--retention likely due to botox +/- psych meds--started flomax--freitas placement for discharge--VN
Bipolar disorder/major depression--[place] and valproate within therapeutic limits--apprec psych input
Non-anion gap metabolic acidosis -AG of 9, HCO3 still low (Cl elevated)--NS may be contributing--stop and follow
Essential hypertension -resume lisinopril
Hypothyroid--TSH of 0.03 and free T4 of 1.8--Patient is on levothyroxine 125 mcg p.o.--continue--recheck TFTs in 4 weeks
Transaminitis -ALT and AST improving
Ambulatory dysfunction--PT/OT with walker
Codes status- full
DVT Proph
D/C today to home with VN and freitas
Original Note:
Today's Communication/Plan
-
Possible discharge today on PO Abx
Freitas cath
Assessment / Plan
Assessment / Plan
Ms Perez is a 75 year old female with PMH of bipolar disorder on lithium with other therapy, with prior history of catatonia, essential hypertension, generalized anxiety, hypothyroidism, who presented to the [facility] ED 2 days ago (03/27/2025) on
account of AMS; Minimally communicative and, refusal to eat and drink.
LABS PENDING
1) Altered mental status
Likely secondary to Urinary tract infection
Possible Bipolar affective disorder contributing.
2) Urinary tract infection with encephalopathy
Patient with urinary retention and pos urinary WBC, Nitrite, Blood
Commence Abx; Rocephine pending culture result.
Can be discharged on PO ABx.
To be called to review culture result
3) Acute kidney injury
Baseline of 1.0
Cr 1.7 on presentation, improved back to 1.0
Lisinopril resumed
4) Acute urinary retention
Presented in urinary retention. H/O Of Botox injections/for bladder urgency.
Straight cat protocol and yielded 600mls X 3.
Flomax 0.4 mg started
Will need DC with Freitas
Short FU with Urology
5)Bipolar disorder/major depression
[place] and valproate within therapeutic limits
Psychiatry consulted, input appreciated
Hold off Ativan for now.
Currently maintaining on home regimen as reported by family and med review.
6) Non-anion gap metabolic acidosis
-AG of 9, HCO3 still low (Cl elevated)
Currently on NPO/IVF for Abd USS,
Continue to monitor
7). Essential hypertension -
Blood pressure on the High side
To resume home Lisinopril 10mg
8) Hypothyroid
TSH of 0.03 and free T4 of 1.8.
Patient is on levothyroxine 125 mcg p.o.
Resume medications
9) Transaminitis -
ALT, AST and AlkP improving.
Cancel USS.
10) Ambulatory disfunction
Ambulates with walker
PT/OT, recommends SNF, Family prefers home( with home PT)
Patient with Pancytopenia, on IVF, possible dilutional
Codes status- full
DVT PPX- S/C Levonox
Dispo-Home with home PT (Patient's/Family's prefrence)
Anticipated Discharge: Today
Subjective/Interval History
-
Date of Service: March 29, 2025
Met with at the bedside.
No new complains
Objective Data
-
Labs:
Laboratory Results
03/29/25
07:01
WBC Pending
Hgb Pending
Hct Pending
Plt Count Pending
Sodium Pending
Potassium Pending
Chloride Pending
Carbon Dioxide Pending
BUN Pending
Creatinine Pending
Glucose Pending
Calcium Pending
Total Bilirubin Pending
AST Pending
ALT Pending
Alkaline Phosphatase Pending
Vital Signs:
Vital Signs
Temp Pulse Resp BP Pulse Ox
98.5 F 79 16 139/68 96
03/29/25 07:59 03/29/25 07:59 03/29/25 07:59 03/29/25 07:59 03/29/25 07:59
I&O
03/28/25 03/29/25 03/30/25
06:59 06:59 06:59
Intake Total 875 / 875 3720 / 3720
Output Total 1200 / 1200 620 / 620
Balance -325 / -325 3100 / 3100
Review of Systems
-
History Source: Patient and Family ( at the bedside)
Physical Exam
-
General: Well Developed and Well Nourished
HEENT: Normocephalic and Atraumatic
Respiratory: Clear to Auscultation
Cardiac: Regular Rhythm and S1/S2
GI: Soft, Nontender, Nondistended and Normal Bowel Sounds
Genito-urinary: No Costovertebral Tender
Musculoskeletal: No Edema
Skin: Warm and Dry
Neuro: Awake, Alert, Oriented, AO x 3 and Other (Responds slowly)
Psych: Calm
Data Reviewed
-
Labs: Labs Reviewed by me, Discussed with Physician, Discussed with Patient and Discussed with Family
[2025-03-29 08:18] LABS: Hematocrit 31.4 % (37.0-47.0); Hemoglobin 10.0 g/dL (12.0-16.0); Mean Corp Hgb Conc. 31.8 g/dL (33.0-37.0); Mean Corpuscular Volume 96.9 fL (81.0-99.0); Platelet Count 91 10^3/uL (130-400); Red Cell Dist. Width 12.7 % (11.5-14.5)
[2025-03-29 08:33] LABS: ALT (SGPT) 43 U/L (0-35); AST (SGOT) 25 U/L (14-36); Albumin 2.7 g/dl (3.5-5.0); Alkaline Phosphatase 146 U/L (38-126); Blood Urea Nitrogen 22 mg/dl (7-17); Calcium 9.5 mg/dl (8.4-10.2); Carbon Dioxide 19 mmol/L (22-30); Chloride 112 mmol/L (98-107); Estimated Creatinine Clearance 52 ml/min; Glucose 72 mg/dl (70-99); Potassium 4.1 mmol/L (3.5-5.1); Sodium 137 mmol/L (135-145); Total Protein 5.2 g/dl (6.3-8.2); eGFR 58.39
[2025-03-29] MEDS: ZESTRIL 10 MG PO (08:46)
--- NOTE | 2025-03-29 11:07 | PTCARENOTE ---
Placed 16F Freitas, 475ml nhan, sediment, cloudy urine was initial output. Spent about 30-45 minutes educating pt daughter and on how to clean the catheter, how to empty bag, stat lock, etc. Pt daughter and demonstrated to this RN how
to empty freitas bag. Educated and provided example of how to correctly clean around freitas. Also educated on risk of infection. Pt family state understanding. Educated on how to change bags as well, provided with leg bag. Pt and family have no further
questions at this time
[2025-03-29] MEDS: ROCEPHIN 1000 MG IV (11:32)
[2025-03-29] MEDS: STERILE WATER FOR INJECTION 10 ML IV (11:32)
[2025-03-29 11:34] VITALS: BP 153/93
--- NOTE | 2025-03-29 12:33 | W.PN.UPDATE ---
Update Note
Progress Note Update
I spoke with pt's psychitrist last night, interviewed pt this am, spoke with and daughter. Pt in better spirits, answered questions in full sentences. Happy to be going home, not so happy about freitas but willing to try working with it.
Smiling.
Pt will need new prescription for clonazepam for prn use; current script long .
--- NOTE | 2025-03-29 14:20 | PN.CDI ---
Addendum entered and electronically signed by Sangeeta Aguero MD 03/29/25 14:37:
Documentation is complete.
Original Note:
CDI
- -
CDI:
Physician Documentation Request
Admit Date: 03/27/25 18:[address] Alvarenga,
[facility] is using an adapted version of the 2016 Third International Consensus Definitions for Sepsis and Septic Shock (Sepsis-3) where sepsis is defined as life threatening organ dysfunction caused by a deregulated host response to infection.
Please reference the official [facility] Sepsis Recognition Tool for further information, which can be found on the Intranet under Infection Prevention.
Clinical Indicators Include:
03/29 PN, 'Urinary tract infection with encephalopathy...Acute kidney injury Patient with urinary retention...'
Vital signs on admission:
Temp:100.9
HR: 90-110s
RR: 20s
Labs on admission:
Creatinine: 1.7
Based on your medical judgment, can you further clarify the diagnosis being monitored/treated this admission?
Sepsis due to UTI with organ dysfunction of metabolic encephalopathy, POA
Sepsis due to UTI with organ dysfunction of metabolic encephalopathy and JOEY, POA
UTI only
Other
Clinically unable to determine
Use of terms such as suspected, likely, concern for, or probable (associated with a specific diagnosis that is being evaluated, monitored, or treated as if it exists) are acceptable and can be coded in the inpatient setting when documented at the
time of discharge.
Please use your independent medical judgement in providing your response.
Thank you,
DINO Sanderson RN
CDI Specialist
available via tiger text
--- NOTE | 2025-03-29 14:50 | CM ---
Patient seen at bedside with physicians on . Patient for discharge home with [facility]. CM reviewed IMM and signed form placed on chart. Patient family given list of aides/ and plan to call [facility] to see if they can access aides. CM will continue
for discharge planning needs.
Plan; home with [facility]
--- NOTE | 2025-03-29 16:52 | W.DCSUMMARY ---
Addendum entered and electronically signed by Sangeeta Aguero MD 03/30/25 07:12:
Read, reviewed, and agree. See same day progress note for additional details. Time spent coordinating care, DC planning, review of DC plan of care with resident, transition of care, review of records in EMR, med rec, consults, notes, d/w
consultants, nursing, family, and CM = 32 minutes
Original Note:
Discharge Summary
Discharge Data
Date of Admission: 03/27/25
Date of Discharge: 03/29/25
-
Pending Results: Yes (Urine culture)
Hospital Course
Discharging Physician : Palmira Alvarenga MD, More Harkins MD
Disposition : Home with home health
Primary care physician : Dr. Daljit Carlos
Principal Discharge diagnosis :
Altered mental status
Urinary tract infection with Toxic metabolic encephalopathy
Acute kidney injury
Acute urinary retention
Bipolar affective disorder
Major depression
Non-anion gap metabolic acidosis
Trans-aminitis
Essential hypertension
Hypothyroidism
Ambulatory dysfunction
Hospital Course :
Ms Perez is a 75 year old female with PMH of bipolar disorder with h/o of catatonia, essential hypertension, generalized anxiety, hypothyroidism, who presented to the [facility] ED 03/27/2025 account of AMS; Minimally communicative and, refusal to
eat and drink.
On presentation to the ED, she was in no obvious distress, she was awake and alert but appeared weak and debilitated with flat effect and minimally participating in evaluation.
She was admitted and managed for Altered mental status, urinary tract infection, urinary retention, and acute kidney injury.
She was seen in conjunction with psychiatry.
During her admission, she received a stat dose of Ativan 1mg, received Intravenous infusion and intravenous antibiotics.
She was in acute urinary retention requiring straight catheterization, and Flomax was commenced but was eventually switched to Freitas as this was not improving.
She presented in JOEY which had resolved prior to discharge.
Mild transaminitis was also noted in this admission, it did improve and didn't require any further imaging.
Following significant improvement she is being discharged home with home health based on their preference on oral Keflex pending bacterial sensitivity result and Flomax and to continue with freitas catheter.
She is to have a short follow up with her Primary care and urologist within 1 week.
Repeat CBC, CMP, Urinalysis is advised upon discharge.
Discharge Plan
-
Patient Disposition: Home with Home Care
Discharge Diagnosis/Procedures: Altered mental status
Urinary tract infection with Toxic metabolic encephalopathy
Acute kidney injury
Acute urinary retention
Bipolar affective disorder
Major depression
Non-anion gap metabolic acidosis
Trans-aminitis
Essential hypertension
Hypothyroidism
Ambulatory dysfunction
Condition: Fair
Diet: As tolerated
Activity: With assistance, As tolerated and With Walker
Driving Restrictions: As prior to admission
Bathing Restrictions: None
Blood Work: Repeat CBC, UA, CMP in less than 1 week
Other Services: VN, PT and OT
Referrals:
Daljit Carlos DO [Family Provider, Family Practice]
Referral Note: See your primary care provider in less than 1 week.
You will need to repeat Complete blood count, Complete metabolic panel and urinalysis
Trevon Rizo DO [Non-Admitting Privileges, Urology]
Referral Note: You have been placed on Freitas catheter and Flowmax for urinary retention.
Please call your urology office to book an appointment within a week for review.
Additional Discharge Medication Instructions: You are being discharged on Antibiotics; Cephalexin to be taking twice daily by mouth for 7 day starting tomorrow 03/30/2025.
You will be called in a day or two if you need to change this medication when antibacterial sensitivity results comes out.
You were started on Flomax tablets, 1 to be taken by mouth at night, take this till you see your urologist within the next week.
You are to continue your other medications you were prior to admission.
Prescriptions:
New
tamsulosin 0.4 mg Capsule
0.4 mg PO HS Qty: 30 0RF
cephalexin 500 mg Capsule
500 mg PO BID 7 Days Qty: 14 0RF
Continued
clonazepam 0.5 MG tablet
0.5 mg PO HSPRN PRN (Reason: anxiety)
divalproex 500 MG tablet,delayed release (DR/EC)
500 mg PO HS
quetiapine [Seroquel] 100 MG tablet
200 mg PO HS
venlafaxine [Effexor XR] 150 mg capsule,extended release 24hr
150 mg PO HS
lithium carbonate 300 mg capsule
300 mg PO HS
levothyroxine [Synthroid] 125 mcg tablet
125 mcg PO DAILY
lisinopril 10 mg tablet
10 mg PO DAILY
Rexulti 3 mg Tablet
1.5 mg PO HS
cyanocobalamin (vitamin B-12) 1,000 mcg Tablet
1,000 mcg PO DAILY
Discharge Orders:
Discharge Patient (As Directed); Ordered 03/29/25
Ordered By: Palmira Alvarenga
Discharge Date and Time
Discharge Date/Time: 03/29/25 13:24
Print Language: AFGHAN
== END 2025-03-29 13:24 | disposition home health service (06) | DRG 682 ==
LOC: 4 EAST ACU 18:21
PROVIDERS: Emergency Medicine; ADMITTING PHYSICIAN Hospitalist; ATTENDING PHYSICIAN Internal Medicine; CONSULT PHYSICIAN Psychiatry & Neurology Psychiatry; EMERGENCY PHYSICIAN Emergency Medicine; FAMILY PHYSICIAN Family Medicine
DX: N17.9 Acute kidney failure, unspecified (principal); G92.8 Other toxic encephalopathy; N39.0 Urinary tract infection, site not specified; E87.20 Acidosis, unspecified; F31.30 Bipolar disorder, current episode depressed, mild or moderate severity, unspecified; I10 Essential (primary) hypertension; E03.9 Hypothyroidism, unspecified; Z79.890 Hormone replacement therapy; F41.1 Generalized anxiety disorder; E86.0 Dehydration; Z11.52 Encounter for screening for COVID-19
CPT/HCPCS: 80053; 80164; 80178; 81003; 81015; 82140; 82248; 84439; 84443; 85027; 87086; 87088; 87186; 87502; 87811; 97163; 99285